=== PATIENT | male | born 1940 | race Caucasian/White ===

== ENCOUNTER → 2017-04-03 | Day surgery (SDC) | payer MEDICARE, OTHER ==
[2013-08-28 22:00] VITALS: BP 132/76
[~2017-04-03] MED LIST: Aspirin EC PO; DOXAZOSIN4 MG PO; FOLIC ACID 40400 MCG PO; IRON325 M1 PO; LISINOPRIL/HCTZ1 TA1 PO; MELOXICAM15 MG PO; METAMUCIL3.4 GM/DOS PO; NORCO 325 MG-7.1 TAB PO; PAIN & FEVER R500 M1 PO; PROSCAR 5MG5 MG PO; Patient's Own Medication PO; VITAMIN C500 MG PO
== END ==
LOC: MSO 13:12
DX: Z12.11 Encounter for screening for malignant neoplasm of colon (principal); D12.4 Benign neoplasm of descending colon; Z86.010 Personal history of colon polyps; I10 Essential (primary) hypertension; E66.01 Morbid (severe) obesity due to excess calories; K21.9 Gastro-esophageal reflux disease without esophagitis; K57.30 Diverticulosis of large intestine without perforation or abscess without bleeding; E78.2 Mixed hyperlipidemia; Z68.38 Body mass index [BMI] 38.0-38.9, adult
CPT/HCPCS: 00810; J7120

== ENCOUNTER 2019-02-06 12:10 | Emergency (ER) | payer MEDICARE, OTHER ==
[~2019-02-06 12:10] MED LIST changes: -DOXAZOSIN2 MG PO; -FISH OIL 1,0001 EAC2 PO; -LISINOPRIL20 MG PO
[2019-02-06] MEDS ORDERED: FISH OIL 1,0001 EAC2 PO (12:34)
[2019-02-06] MEDS ORDERED: DOXAZOSIN2 MG PO (12:34)
[2019-02-06] MEDS ORDERED: LISINOPRIL20 MG PO (12:34)
[2019-02-06 12:46] LABS: EOS # 0.2 (0.04-0.40); EOS % 2.8 % (0.0-4.0); HEMOGLOBIN 15.9 g/dL (13.5-18.0); LYMPH# 1.9 (1.50-4.00); MEAN CELL VOLUME 90 fl (78-100); MEAN CORPUSCULAR HEMOGLOBIN 31 pg (27-31); MEAN CORPUSCULAR HGB CONC 34 g/dL (33-37); MEAN PLATELET VOLUME 10.7 fl (7.4-10.4); MONO # 0.9 (0.20-0.80); NEU # 5.6 (1.40-6.50); PLATELET COUNT 97 K/mm3 (130-400); RED BLOOD COUNT 5.21 M/mm3 (4.20-5.60); RED CELL DISTRIBUTION WIDTH 12.8 % (11.5-14.5); WHITE BLOOD COUNT 8.7 K/mm3 (4.8-10.8)
[2019-02-06 13:09] LABS: ALBUMIN 3.7 g/dL (3.4-4.8)
[2019-02-06 13:10] LABS: POTASSIUM 4.3 mmol/L (3.5-5.1)
[2019-02-06 13:11] LABS: CALCIUM 8.9 mg/dL (8.3-10.5)
[2019-02-06 13:12] LABS: TOTAL PROTEIN 7.4 g/dL (6.2-8.1)
[2019-02-06 13:14] LABS: TOTAL BILIRUBIN 0.7 mg/dL (0.2-1.2)
[2019-02-06 13:25] LABS: TROPONIN-I 0.44 ng/mL (<0.030)
[2019-02-06 13:38] LABS: PARTIAL THROMBOPLASTIN TIME 27.1 SECONDS (21.0-32.0)
[2019-02-06 15:18] VITALS: BP 153/106
== END 2019-02-06 14:50 | disposition short-term general hospital (02) ==
LOC: ED 12:10
PROVIDERS: Nurse Practitioner Family
DX: I26.99 Other pulmonary embolism without acute cor pulmonale (principal); I82.401 Acute embolism and thrombosis of unspecified deep veins of right lower extremity; E11.9 Type 2 diabetes mellitus without complications; E78.5 Hyperlipidemia, unspecified; I10 Essential (primary) hypertension; K21.9 Gastro-esophageal reflux disease without esophagitis; Z86.718 Personal history of other venous thrombosis and embolism; Z98.890 Other specified postprocedural states
CPT/HCPCS: J1644; J7030; Q9967

== ENCOUNTER → 2019-02-06 | Outpatient (CLI) | payer MEDICARE, OTHER ==
[2013-08-28 22:00] VITALS: BP 132/76
[~2019-02-06] MED LIST changes: +DOXAZOSIN2 MG PO; +FISH OIL 1,0001 EAC2 PO; +LISINOPRIL20 MG PO
== END ==
LOC: RAD 11:12
DX: I82.411 Acute embolism and thrombosis of right femoral vein (principal); I82.431 Acute embolism and thrombosis of right popliteal vein

== ENCOUNTER → 2019-12-08 | Outpatient (CLI) | payer MEDICARE, OTHER ==
[~2019-12-08] MED LIST changes: +DOXAZOSIN2 MG PO; +FISH OIL 1,0001 EAC2 PO; +LISINOPRIL20 MG PO
== END ==
LOC: RAD 08:42
DX: Z86.711 Personal history of pulmonary embolism (principal)
CPT/HCPCS: Q9967

== ENCOUNTER 2020-09-23 12:18 | Emergency (ER) | payer MEDICARE, OTHER ==
[2020-09-23] MEDS ORDERED: WARFARIN SOD5 MG PO (12:29)
[2020-09-23 12:51] LABS: EOS # 0.4 (0.04-0.40); EOS % 4.8 % (0.0-4.0); HEMATOCRIT 49.3 % (42.0-52.0); HEMOGLOBIN 16.3 g/dL (13.5-18.0); LYMPH# 2.8 (1.50-4.00); MEAN CELL VOLUME 91 fl (78-100); MEAN CORPUSCULAR HEMOGLOBIN 30 pg (27-31); MEAN CORPUSCULAR HGB CONC 33 g/dL (33-37); MEAN PLATELET VOLUME 9.9 fl (7.4-10.4); MONO # 0.7 (0.20-0.80); NEU # 4.1 (1.40-6.50); PLATELET COUNT 185 K/mm3 (130-400); RED BLOOD COUNT 5.44 M/mm3 (4.20-5.60)
[2020-09-23 13:03] LABS: ALBUMIN 3.8 g/dL (3.4-4.8); POTASSIUM 4.3 mmol/L (3.5-5.1); SODIUM 138 mmol/L (136-145)
[2020-09-23 13:04] LABS: CALCIUM 8.9 mg/dL (8.3-10.5)
[2020-09-23 13:05] LABS: GLUCOSE 148 mg/dL (75-110)
[2020-09-23 13:06] LABS: TOTAL PROTEIN 6.9 g/dL (6.2-8.1)
[2020-09-23 13:07] LABS: CARBON DIOXIDE 21 mmol/L (23-31); TOTAL BILIRUBIN 0.5 mg/dL (0.2-1.2)
[2020-09-23 13:11] LABS: AST-SGOT 18 U/L (5-34)
[2020-09-23 13:12] LABS: ALT/SGPT 19 U/L (0-55)
[2020-09-23 13:13] LABS: PROTHROMBIN TIME 31.4 SECONDS (9.0-12.0)
[2020-09-23 13:19] LABS: TROPONIN-I < 0.03 ng/mL (<0.030)
[2020-09-23 14:35] LABS: URINE APPEARANCE HAZY; URINE BILIRUBIN NEGATIVE (NEGATIVE); URINE BLOOD 50 ery/uL (NEGATIVE); URINE COLOR YELLOW; URINE GLUCOSE 50 mg/dL mg/dL (NEGATIVE); URINE KETONE NEGATIVE (NEGATIVE); URINE LEUKOCYTE ESTERASE NEGATIVE (NEGATIVE); URINE NITRATE NEGATIVE (NEGATIVE); URINE PROTEIN(semi-quant) 1+ mg/dL (NEGATIVE); URINE UROBILINOGEN NORMAL (NORMAL)
[2020-09-23 14:36] LABS: URINE MUCUS PRESENT (NOT PRESENT)
[2020-09-23 15:38] VITALS: BP 152/89
== END 2020-09-23 15:35 | disposition home or self-care (01) ==
LOC: ED 12:18
PROVIDERS: Physician Assistant
DX: R55 Syncope and collapse (principal); I10 Essential (primary) hypertension; N40.0 Benign prostatic hyperplasia without lower urinary tract symptoms; Z86.711 Personal history of pulmonary embolism; Z79.01 Long term (current) use of anticoagulants

== ENCOUNTER 2020-10-21 07:46 | Observation (INO) | payer MEDICARE, OTHER ==
[~2020-10-21 07:46] MED LIST changes: +WARFARIN SOD5 MG PO
[2020-10-21 08:20] VITALS: BP 133/68
[2020-10-21 08:37] LABS: EOS # 0.3 (0.04-0.40); EOS % 2.5 % (0.0-4.0); HEMATOCRIT 43.4 % (42.0-52.0); HEMOGLOBIN 14.2 g/dL (13.5-18.0); LYMPH# 3.4 (1.50-4.00); MEAN CELL VOLUME 92 fl (78-100); MEAN CORPUSCULAR HEMOGLOBIN 30 pg (27-31); MEAN CORPUSCULAR HGB CONC 33 g/dL (33-37); MEAN PLATELET VOLUME 10.5 fl (7.4-10.4); MONO # 0.7 (0.20-0.80); NEU # 5.5 (1.40-6.50); PLATELET COUNT 196 K/mm3 (130-400); RED BLOOD COUNT 4.72 M/mm3 (4.20-5.60); RED CELL DISTRIBUTION WIDTH 12.8 % (11.5-14.5); WHITE BLOOD COUNT 9.8 K/mm3 (4.8-10.8)
[2020-10-21 08:50] LABS: ALBUMIN 3.4 g/dL (3.4-4.8); POTASSIUM 4.8 mmol/L (3.5-5.1)
[2020-10-21 08:52] LABS: TOTAL PROTEIN 6.4 g/dL (6.2-8.1)
[2020-10-21 08:54] LABS: TOTAL BILIRUBIN 0.4 mg/dL (0.2-1.2)
[2020-10-21 10:06] LABS: PROTHROMBIN TIME 39.3 SECONDS (9.0-12.0)
--- NOTE | 2020-10-21 11:22 | NUR ---
Pt to surgery dept for EGD. to surgery waiting room
[2020-10-21 11:32] VITALS: BP 117/71
[2020-10-21 12:59] LABS: HEMATOCRIT 41.1 % (42.0-52.0); HEMOGLOBIN 13.3 g/dL (13.5-18.0)
--- NOTE | 2020-10-21 13:10 | NUR ---
PT LEAVES WITH EMS AT THIS TIME. REPORT CALLED TO NURSE KYLE. CRISTINA MOCK CALLED TO ASSIST PT HOME. TAKE ALL OF PATIENT BELONGINGS WITH HER INCLUDING CLOTHES, WALLET AND KEYS.
== END 2020-10-21 13:10 | disposition short-term general hospital (02) ==
LOC: ED 07:46 → MED/SURG 11:14 → ED 11:22 → MED/SURG 13:10
PROVIDERS: ADMIT Nurse Practitioner Family
DX: K92.1 Melena (principal); R55 Syncope and collapse; R42 Dizziness and giddiness; R79.89 Other specified abnormal findings of blood chemistry; R53.1 Weakness; I10 Essential (primary) hypertension; E78.5 Hyperlipidemia, unspecified; E66.9 Obesity, unspecified; K21.9 Gastro-esophageal reflux disease without esophagitis; Z86.711 Personal history of pulmonary embolism; Z79.899 Other long term (current) drug therapy; Z79.01 Long term (current) use of anticoagulants
CPT/HCPCS: 00731; C9113; G0378; J2704; J3430; J3490; J7030; J7120

== ENCOUNTER 2022-10-05 22:27 | Emergency (ER) | payer MEDICARE, OTHER ==
[~2022-10-05] VITALS: Ht 186.7 cm; Wt 124.0 kg
[~2022-10-05 22:27] MED LIST changes: +ANTIVERT12.5 M1 PO; +PANTOPRAZOLE SO40 MG PO
[2022-10-05 23:13] LABS: BASO # 0.02 K/mm3 (0.02-0.10); EOS # 0.34 K/mm3 (0.04-0.40); EOS % 5.2 % (0.0-4.0); HEMATOCRIT 43.3 % (42.0-52.0); HEMOGLOBIN 14.2 g/dL (13.5-18.0); MEAN CELL VOLUME 88 fl (78-100); MEAN CORPUSCULAR HEMOGLOBIN 29 pg (27-31); MEAN CORPUSCULAR HGB CONC 33 g/dL (33-37); MEAN PLATELET VOLUME 10.3 fl (7.4-10.4); MONO # 0.67 K/mm3 (0.20-0.80); NEU # 3.04 K/mm3 (1.40-6.50); PLATELET COUNT 185 K/mm3 (130-400); RED CELL DISTRIBUTION WIDTH 13.2 % (11.5-14.5); WHITE BLOOD COUNT 6.6 K/mm3 (4.8-10.8)
[2022-10-05 23:20] LABS: ALBUMIN 3.6 g/dL (3.4-4.8); POTASSIUM 4.4 mmol/L (3.5-5.1); SODIUM 137 mmol/L (136-145)
[2022-10-05 23:21] LABS: CALCIUM 8.7 mg/dL (8.3-10.5)
[2022-10-05 23:22] LABS: GLUCOSE 147 mg/dL (75-110); TOTAL PROTEIN 6.3 g/dL (6.2-8.1)
[2022-10-05 23:23] LABS: CARBON DIOXIDE 21 mmol/L (23-31)
[2022-10-05 23:24] LABS: TOTAL BILIRUBIN 0.2 mg/dL (0.2-1.2)
[2022-10-05 23:28] LABS: AST-SGOT 15 U/L (5-34); PROTHROMBIN TIME 32.5 SECONDS (9.0-12.0)
[2022-10-05 23:29] LABS: ALT/SGPT 14 U/L (0-55)
[2022-10-05 23:36] LABS: TROPONIN-I < 0.030 ng/mL (<0.030)
[2022-10-06 00:56] LABS: URINE APPEARANCE CLEAR; URINE BILIRUBIN NEGATIVE (NEGATIVE); URINE BLOOD TRACE (NEGATIVE); URINE COLOR YELLOW; URINE GLUCOSE NEGATIVE (NEGATIVE); URINE KETONE NEGATIVE (NEGATIVE); URINE LEUKOCYTE ESTERASE NEGATIVE (NEGATIVE); URINE NITRATE NEGATIVE (NEGATIVE); URINE PROTEIN(semi-quant) TRACE (NEGATIVE); URINE UROBILINOGEN NORMAL (NORMAL); URINE WBC 0-1 /hpf (0-3)
[2022-10-06 01:35] VITALS: BP 152/87
== END 2022-10-06 01:40 | disposition home or self-care (01) ==
LOC: ED 22:27
PROVIDERS: Family Medicine
DX: I95.1 Orthostatic hypotension (principal); I26.99 Other pulmonary embolism without acute cor pulmonale; I82.409 Acute embolism and thrombosis of unspecified deep veins of unspecified lower extremity; Z79.01 Long term (current) use of anticoagulants
CPT/HCPCS: J7030

== ENCOUNTER → 2023-07-20 | Outpatient (CLI) | payer MEDICARE, OTHER | LOC: RAD 08:32 | DX: R91.8 Other nonspecific abnormal finding of lung field (principal) | CPT/HCPCS: Q9967 ==

== ENCOUNTER → 2024-09-11 | Outpatient (CLI) | payer MEDICARE, OTHER | LOC: RAD 08:49 | DX: J18.1 Lobar pneumonia, unspecified organism (principal) ==